=== PATIENT | male | born 1995 | race Caucasian/White ===

== ENCOUNTER 2021-01-13 08:50 | Emergency (ER) | payer OTHER, SELFPAY ==
[2021-01-13 08:51] VITALS: BP 125/67; PULSE 86; RESP 17; TEMP 36.2; O2SAT 99; BMI 23.5
--- NOTE | 2021-01-13 09:10 | RAD_ITS ---
STUDY: X-RAY - LEFT HAND REASON FOR EXAM: Left hand pain, laceration of the distal middle and ring fingers. TECHNIQUE: 3 view(s) of the hand. COMPARISON: None. FINDINGS: Normal radiocarpal articulation. Normal distal radioulnar joint. Normal visualized carpal bones. Normal carpal articulations Normal carpometacarpal articulation of the thumb. Normal second through fifth carpometacarpal joints. Normal metacarpi. Normal metacarpophalangeal joint of the thumb. Normal interphalangeal joint of the thumb. Normal proximal and distal phalanges of the thumb. Normal metacarpophalangeal joints of the second through fifth fingers. Normal proximal and distal interphalangeal joints of the second through fifth fingers. There is a mildly displaced fracture of the diaphysis of the third distal phalanx and a very small fragment at the ulnar aspect of the third ungual tuft. There is a mildly displaced comminuted fracture of the ungual tuft of the fourth distal phalanx. There is a small foreign body at the radial aspect of the fifth middle phalanx. RAD/Hand Min 3 Views IMPRESSION: Fractures of the third and fourth distal phalanges. Small foreign body of the fifth digit. Electronically Signed: Emanuel Suarez MD at 10:03 EST Tel , Service support ,
[2021-01-13] MEDS: Diphth,Pertuss(Acell),Tet Vac 0.5 ML Vial IM (09:22)
[2021-01-13] MEDS: Lidocaine 1% (20 ml mdv) 20 ML Vial INFILT (09:22)
--- NOTE | 2021-01-13 09:24 | ED.DCSUM_ITS ---
- ER Visit Summary Date of Service: 01/13/21 Chief Complaint: Left finger injury History of Present Illness: The patient is a 25 M who presents with injuries to his left finger. About 1 hour ago his fingers were slammed in a truck door that was closing. He sustained lacerations to the distal third and fourth finger. No LOC. His last tetanus is unknown. It is worse with movement. Physical Examination: Vital signs are reviewed. Left hand exam reveals tenderness at the third and fourth digits distally. The fingernails are intact. Upper, there is a 75% hematoma in the subungual space of the fourth finger. There is a 2 cm horizontal laceration at the dorsal DIP joint of the fourth finger. His neurologic exam is normal. His sensation is intact distally. Capillary refills less than 2 seconds. Test Results: Left hand x-ray shows comminuted fractures of the third and fourth distal phalanx of the fingers. Emergency Department Course and Treatment: The patient had a digital block performed in the third and fourth fingers using 1% lidocaine without epinephrine. Exploration of the wound showed on the fourth finger that there is just abrasions and that the fingernail is intact. However, on the third finger the fingernail has been uprooted from the nail bed. I replaced this and put 1 suture in the middle and one on each side for a total of 3 sutures to reapproximate the nail and laceration. I did perform a trephination of the fourth finger nail using an 18-gauge needle to evacuate a 75% subungual hematoma. I did not need to trephinate the third fingernail because blood was already evacuating. The fourth finger is not an open wound. However, the third finger is considered an open fracture due to the fingernail being displaced. I will place the patient on Keflex. His tetanus was updated. He will be placed in finger splints and dressings. I will give him orthopedic follow-up and he is going to call today for a follow-up tomorrow or Monday. Treatment Plan: [] Disposition: Discharge Impression: Left third and fourth finger distal phalanx fractures Left third finger laceration, 2 cm Laceration repair by ED physician Fingernail trephination by ED physician This note was generated with [employer] software. It may contain incorrect words, spelling, and punctuation that were not noted in review of the chart prior to signing ED Disposition - Plan for ED Patient: Disposition: Home or Assisted Living Instructions: ED Laceration: All Closures Prescriptions: Cephalexin [Keflex] 500 mg PO Q6 #40 cap Transmission Status: Pending to [facility] Hydrocodone Bitart/Apap 5-325 [Higginson 5MG-325MG] 1 tablet PO Q6H PRN PRN 3 Days #10 tablet PRN Reason: Pain Transmission Status: Sent to [facility] Referrals: Care Physician,No Primary [Primary Care Provider] - Alexys Mock DO [STAFF PHYSICIAN] -
== END 2021-01-13 10:30 | disposition home or self-care (01) ==
PROVIDERS: Emergency Provider Emergency Medicine
DX: S62.633B Displaced fracture of distal phalanx of left middle finger, initial encounter for open fracture (principal); S62.635A Displaced fracture of distal phalanx of left ring finger, initial encounter for closed fracture; S60.142A Contusion of left ring finger with damage to nail, initial encounter; W23.0XXA Caught, crushed, jammed, or pinched between moving objects, initial encounter; Y93.9 Activity, unspecified; Y92.9 Unspecified place or not applicable; Y99.9 Unspecified external cause status; Z23 Encounter for immunization
CPT/HCPCS: 11740; 11760; 73130; 90715; 99283